=== PATIENT | female | born 1990 | race Caucasian/White ===

== ENCOUNTER 2019-02-18 12:59 | Emergency (ER) | payer OTHER ==
[~2019-02-18] VITALS: Ht 152.4 cm; Wt 77.1 kg
[~2019-02-18 12:59] MED LIST: CETYLOZ PO; CLIN300 PO; DOCU100 PO; HYDACE5 PO; LIDO2L MM; META800 PO; MUPI2TO TOP; PROACE100 PO; VITAMINS; [UNRECOGNIZED DRUG - REMARK]
[2019-02-18 14:07] LABS: BASOPHILS ABSOLUTE AUTO 0.05 K/mm3 (0.00-0.23); BASOPHILS PERCENT AUTO 1 % (0-2); EOSINOPHILS ABSOLUTE AUTO 0.12 K/mm3 (0.00-0.68); EOSINOPHILS PERCENT AUTO 2 % (0-6); Hematocrit 44.3 % (33.0-51.0); Hemoglobin 15.1 g/dL (11.5-16.0); IMMATURE GRAN ABSOLUTE AUTO 0.02 K/mm3 (0.00-0.10); IMMATURE GRAN PERCENT AUTO 0 % (0-1); LYMPHOCYTES ABSOLUTE AUTO 2.75 K/mm3 (0.84-5.20); LYMPHOCYTES PERCENT AUTO 35 % (21-46); MONOCYTES ABSOLUTE AUTO 0.49 K/mm3 (0.16-1.47); MONOCYTES PERCENT AUTO 6 % (4-13); Mean Corpuscular HGB 31.8 pg (26.0-34.0); Mean Corpuscular HGB Conc 34.1 g/dL (31.5-36.5); Mean Corpuscular Volume 93 fL (80-100); Mean Platelet Volume 10.9 fL (9.1-12.4); NEUTROPHILS ABSOLUTE AUTO 4.45 K/mm3 (1.96-9.15); NEUTROPHILS PERCENT AUTO 57 % (41-73); Platelet Count 274 K/mm3 (150-400); RDW Coefficient Variation 11.7 % (11.7-14.2); RDW Standard Deviation 39.8 fL (35.1-46.3); Red Blood Cell Count 4.75 M/mm3 (3.80-5.20); White Blood Cell Count 7.88 K/mm3 (4.00-11.30)
[2019-02-18 14:18] LABS: Alanine Aminotransfer (ALT/SGP 66 U/L (12-78); Albumin, Blood 3.8 g/dL (3.4-5.0); Alk Phos 74 U/L (50-136); Anion Gap 7 mmol/L (6-16); Aspartate Aminotrans (AST/SGOT 33 U/L (12-37); Bilirubin, Total 0.3 mg/dL (0.1-1.0); Blood Urea Nitrogen 14 mg/dL (8-24); Bun/Creatinine Ratio 22.1 (12.0-20.0); CO2, Blood 25 mmol/L (21-32); Calcium, Blood 9.1 mg/dL (8.5-10.1); Chloride, Blood 107 mmol/L (98-108); Creatinine, Blood 0.63 mg/dL (0.40-1.00); Globulin, Blood 3.8 g/dL (2.2-4.0); Glomerular Filtration Rate >60 (60-); Glucose, Blood 132 mg/dL (70-99); Potassium, Blood 3.9 mmol/L (3.5-5.5); Sodium, Blood 139 mmol/L (136-145); Total Protein, Blood 7.6 g/dL (6.4-8.2); Troponin I <0.015 ng/mL (0.000-0.040)
[2019-02-18] MEDS ORDERED: BIRTH CONTROL (14:43)
[2019-02-18] MEDS ORDERED: LEVSOD50 PO (14:43)
[2019-02-18] MEDS ORDERED: Norco 5-325 Ta1 EACH PO (15:00)
[2019-02-18] MEDS ORDERED: NAPR550 PO (15:00)
== END 2019-02-18 15:12 | disposition home or self-care (01) ==
LOC: ER 12:59
PROVIDERS: Physician Assistant
DX: M94.0 Chondrocostal junction syndrome [Tietze] (principal); F17.210 Nicotine dependence, cigarettes, uncomplicated
CPT/HCPCS: 71046; 80053; 84484; 85025; 93005; 93010; 99284-25

== ENCOUNTER 2019-03-08 18:45 | Emergency (ER) | payer OTHER ==
[~2019-03-08] VITALS: Ht 152.4 cm; Wt 81.7 kg
[~2019-03-08 18:45] MED LIST changes: +BIRTH CONTROL; +LEVSOD50 PO; +NAPR550 PO; +Norco 5-325 Ta1 EACH PO
[2019-03-08] MEDS ORDERED: Zithromax500 MG PO (19:09)
== END 2019-03-08 19:10 | disposition home or self-care (01) ==
LOC: ER 18:45
DX: J02.9 Acute pharyngitis, unspecified (principal); Z88.0 Allergy status to penicillin; Z79.899 Other long term (current) drug therapy; E03.9 Hypothyroidism, unspecified; F17.200 Nicotine dependence, unspecified, uncomplicated
CPT/HCPCS: 99282

== ENCOUNTER 2019-03-12 12:01 | Emergency (ER) | payer OTHER ==
[~2019-03-12] VITALS: Ht 152.4 cm; Wt 81.7 kg
[~2019-03-12 12:01] MED LIST changes: +Zithromax500 MG PO
[2019-03-12 14:35] LABS: Influenza A Negative (NEGATIVE); Influenza B Positive (NEGATIVE)
[2019-03-12] MEDS ORDERED: ONDA4ODT MM (14:39)
[2019-03-12] MEDS ORDERED: Sudogest60 MG PO (14:39)
[2019-03-12] MEDS ORDERED: METPRE4DP PO (14:39)
[2019-03-12] MEDS ORDERED: CEFD300 PO (14:39)
[2019-03-12] MEDS ORDERED: ALBU90OI INH (14:39)
== END 2019-03-12 14:54 | disposition home or self-care (01) ==
LOC: ER 12:01
PROVIDERS: Physician Assistant
DX: J40 Bronchitis, not specified as acute or chronic (principal); H66.92 Otitis media, unspecified, left ear; Z88.0 Allergy status to penicillin; Z79.899 Other long term (current) drug therapy; E03.9 Hypothyroidism, unspecified; F17.200 Nicotine dependence, unspecified, uncomplicated
CPT/HCPCS: 71046; 87081; 87430; 87804; 94640; 99283-25

== ENCOUNTER 2019-10-13 21:40 | Emergency (ER) | payer OTHER ==
[~2019-10-13] VITALS: Ht 152.4 cm; Wt 72.6 kg
[~2019-10-13 21:40] MED LIST changes: +ALBU90OI INH; +CEFD300 PO; +Flonase 0.05% N16 GM; +METPRE4DP PO; +ONDA4ODT MM; +Sudogest60 MG PO
[2019-10-14] MEDS ORDERED: PROGESTERONE100 MG PO (00:09)
[2019-10-14] MEDS ORDERED: Cleocin HCl300 MG PO (00:19)
== END 2019-10-14 00:30 | disposition home or self-care (01) ==
LOC: ER 21:40
DX: L03.313 Cellulitis of chest wall (principal); E03.9 Hypothyroidism, unspecified; F17.210 Nicotine dependence, cigarettes, uncomplicated; Z79.3 Long term (current) use of hormonal contraceptives; Z79.899 Other long term (current) drug therapy
CPT/HCPCS: 99283

== ENCOUNTER 2019-11-09 14:30 | Emergency (ER) | payer OTHER ==
[~2019-11-09] VITALS: Ht 152.4 cm; Wt 77.1 kg
[~2019-11-09 14:30] MED LIST changes: +Cleocin HCl300 MG PO; +PROGESTERONE100 MG PO
[2019-11-09] MEDS ORDERED: ALBU90OI INH (17:59)
[2019-11-09] MEDS ORDERED: AMOCLA875 PO (17:59)
[2019-11-09] MEDS ORDERED: PSEU120ER PO (17:59)
[2019-11-09] MEDS ORDERED: GUAI600T33 PO (17:59)
== END 2019-11-09 18:22 | disposition home or self-care (01) ==
LOC: ER 14:30
DX: J32.9 Chronic sinusitis, unspecified (principal); J40 Bronchitis, not specified as acute or chronic; E03.9 Hypothyroidism, unspecified; F17.200 Nicotine dependence, unspecified, uncomplicated; Z20.828 Contact with and (suspected) exposure to other viral communicable diseases; Z79.3 Long term (current) use of hormonal contraceptives; Z79.899 Other long term (current) drug therapy
CPT/HCPCS: 71046; 87081; 87430; 93005; 93010; 94640; 99284-25; U0003

== ENCOUNTER 2022-12-15 08:55 | Emergency (ER) | payer OTHER ==
[~2022-12-15] VITALS: Ht 152.4 cm; Wt 72.6 kg
[~2022-12-15 08:55] MED LIST changes: +AMOCLA875 PO; +GUAI600T33 PO; +PSEU120ER PO
[2022-12-15] MEDS ORDERED: IBUP600 PO (10:22)
[2022-12-15 10:28] VITALS: BP 137/78
== END 2022-12-15 10:26 | disposition home or self-care (01) ==
LOC: ER 08:55
DX: S13.4XXA Sprain of ligaments of cervical spine, initial encounter (principal); S20.212A Contusion of left front wall of thorax, initial encounter; V43.52XA Car driver injured in collision with other type car in traffic accident, initial encounter; Z79.899 Other long term (current) drug therapy; E03.9 Hypothyroidism, unspecified; F17.200 Nicotine dependence, unspecified, uncomplicated
CPT/HCPCS: 71045; 99284-25; A9270